=== PATIENT | female | born 1980 | race Caucasian/White ===

== ENCOUNTER 2019-12-11 10:42 | Inpatient (IN) | payer OTHER, SELFPAY ==
[2019-12-11] VITALS (44 sets, daily range): BP systolic 130–169; BP diastolic 73–110; PULSE 91–111; RESP 14–34; TEMP 36.3–36.6; O2SAT 87–97; BMI 64.0
--- NOTE | 2019-12-11 11:10 | XR_ITS ---
WS: [id number] Portable AP upright chest, 12/11/2019 Clinical Data: dyspnea Comparison: None. Findings: The heart is enlarged. There are bilateral pulmonary opacities which could represent acute pneumonia. No nodules, masses or effusions are seen. The pulmonary vascularity may be slightly increa sed. XR/XR chest 1V portable [id number] Impression: 1. Mild cardiomegaly and pulmonary vascular congestion. 2. Pulmonary opacities bilaterally which could represent pneumonia.
[2019-12-11 11:54] LABS: ABG PCO2 50.5 mmHg (35-45); Arterial Blood Gas Hematocrit 40.2 % (37-47); Base Excess ABG 5.4 mmol/L (-2.0-2.0); Blood Gas Allen Test Pos; Blood Gas Operator Identificat CAK; Blood Gas Sample Site Radial, left; Blood Gas Sample Type Arterial; HCO3 ABG 31.4 mmol/L (22-26); Oxygen Device NC; PO2 ABG 55.9 mmHg (80.0-100.0)
--- NOTE | 2019-12-11 11:56 | ED_ITS ---
HPI - SOB/Dyspnea General: Chief Complaint: Shortness of Breath/Dyspnea Stated Complaint: SOB Time Seen by Provider: 12/11/19 10:45 History of Present Illness: HPI Narrative: 39-year-old female presents emergency room with severe shortness of breath myalgias. Is been progressively worsening for the last week and now to the point where she went to the local clinic and was found to be hypoxic she was sent here. She does not have any history of chronic respiratory problems she is not sure of any exposure but was concerned about COVID. She has not had any anosmia she has had some loose stools no vomiting. MD elicited complaint: shortness of breath and cough Onset (ago): week(s) (1) Timing: constant Severity: severe Exacerbating factors: exertion and coughing Relieving factors: oxygen and rest Known history of: other (Hypertension morbid obesity) Associated symptoms: Reports cough; Deny abdominal pain, chest congestion, chest pain, diaphoresis, dizziness, extremity pain, fever(s), hemoptysis, lightheadedness, myalgias, nausea, orthopnea, palpitations, paresthesias, polydipsia, polyuria, rash, sense of impending doom, syncope or vomiting Treatment prior to arrival: none Review of Systems Const: Denies: fever(s) or diaphoresis ENMT: Denies: throat pain, ear or mastoid pain, nasal discharge or nasal congestion Card: Denies: chest pain, palpitations, lightheadedness, syncope or orthopnea Resp: Denies: hemoptysis or chest congestion GI: Denies: abdominal pain, nausea or vomiting : Denies: flank pain, difficulty voiding, dysuria, urinary frequency or urinary urgency Musc: Denies: extremity pain Skin/Breast: Denies: rash or pruritus Neuro: Denies: dizziness Endo: Denies: polyuria or polydipsia [facility] ED PFSH: Medical History (Updated 12/11/19 @ 18:18 by Trevin Canchola MD) Morbid obesity Physical Exam Const: COMMON NORMALS: average body habitus, patient oriented x3 and alert GENERAL APPEARANCE: cooperative, comfortable, well kempt and well developed NUTRITIONAL APPEARANCE: obese ORIENTATION/CONSCIOUSNESS: Yes awake, Yes oriented to person and Yes oriented to place HENMT: COMMON NORMALS: normocephalic, atraumatic and EAC's normal HEAD & SCALP: normocephalic and atraumatic EXTERNAL AUDITORY CANAL: EAC's normal Neck/C-Spine: COMMON NORMALS: no meningeal signs Lymph: LYMPHATIC: no lymphadenopathy noted Resp: COMMON NORMALS: normal respiratory effort, No retractions, No use of accessory muscles and clear to auscultation bilaterally AUSCULTATION: clear to auscultation bilaterally Cardio: COMMON NORMALS: regular rate and regular rhythm RATE: regular rate RHYTHM: regular rhythm HEART SOUNDS: no murmurs GI: COMMON NORMALS: Normal to inspection, nondistended, normoactive bowel sounds present, Soft to palpation and No hepatosplenomegaly present PALPATION: Yes Soft to palpation and Yes No hepatosplenomegaly present : COMMON NORMALS: Yes no CVA tenderness BLADDER/KIDNEY EXAM: Yes no CVA tenderness Back/Pelvis: COMMON NORMALS: no CVA tenderness LUMBAR SPINE/LOWER BACK: Yes normal to inspection Extremity: COMMON NORMALS: no clubbing, cyanosis or edema, no calf tenderness and no pedal edema Neuro: COMMON NORMALS: patient oriented x3 SENSORIUM/ORIENTATION: Yes alert, Yes oriented to person and Yes oriented to place MENINGEAL SIGNS: Yes no meningeal signs Psych: APPEARANCE: Yes well kempt Skin: COMMON NORMALS: no rashes or lesions noted and turgor normal GENERAL SKIN EXAM: no rashes or lesions noted and turgor normal Course Vital Signs: Vital signs: Vital Signs Temperature 98.8 F 12/12/19 12:00 Pulse Rate 99 12/12/19 14:22 Respiratory Rate 20 H 12/12/19 14:22 Blood Pressure 98/77 12/12/19 13:00 Pulse Oximetry 92 12/12/19 14:22 MDM - SOB/Dyspnea MDM Narrative: Medical decision making narrative: Initially had some difficulty with placement. We did not have a VICU bed available here we ultimately had arrangements made at [facility] for the time that have been completed of acute bed became available here so we canceled her transfer to [facility] will keep patient here she received Decadron and her first dose of REM does severe discussed with Dr. Sher. Will also have the patient get a CTA of the chest in route to the VICU Lab Data: Labs: Lab Results 12/11/19 12/11/19 12/11/19 Range/Units 11:43 13:20 13:20 WBC 5.5 (4.0-10.0) 10^3/ uL RBC 4.73 (4.1-5.3) 10^6/u L Hgb 12.6 (11.5-15.3) g/dL Hct 41.9 (37.0-47.0) % MCV 88.6 (81-99) fL MCH 26.6 L (28.0-34.0) pg MCHC 30.1 (30.0-36.0) g/dL RDW 14.5 (12.1-15.1) % Plt Count 177 (130-400) 10^3/c mm MPV 10.7 H (7.4-10.4) fL Neut % (Auto) 82.2 % Lymph % (Auto) 8.9 % [place] % (Auto) 4.9 % Eos % (Auto) 0.0 % Baso % (Auto) 0.4 % Neut # (Auto) 4.50 (1.8-7.7) 10^3/u L Lymph # (Auto) 0.5 L (0.8-4.8) 10^3/u L [place] # (Auto) 0.3 (0.2-0.9) 10^3/u L Eos # (Auto) 0.0 (0.0-0.8) 10^3/u L Baso # (Auto) 0.0 (0.0-0.1) 10^3/u L Nucleated RBC % (a uto) 0.4 % Nucleated RBCs # 0.0 /100WBC Fibrinogen 668 H (174-498) mg/dL D-Dimer 1.26 H (0-0.59) ug/mIFE U Specimen Type Arterial Sample Site Radial, left ABG pH 7.40 (7.35-7.45) ABG pCO2 50.5 H (35-45) mmHg ABG pO2 55.9 L (80.0-100.0) mmH g ABG HCO3 31.4 H (22-26) mmol/L ABG Base Excess 5.4 H (-2.0-2.0) mmol/ L Gopal Test Pos Hematocrit 40.2 (37-47) % O2 Delivery Device Nc O2 Liters/Min 2.0 % FiO2 28.0 % Nutrition Professor ID Cak Sodium (136-145) mmol/L Potassium (3.5-5.1) mmol/L Chloride (98-107) mmol/L Carbon Dioxide (22-29) mmol/L Anion Gap (5-19) BUN (6-20) mg/dL Creatinine (0.5-0.9) mg/dL GFR Calculation (90-130) mL/min Glucose (65-115) mg/dL Estimat Average Gl ucose Hemoglobin A1c (4.0-6.0) % Calculated Osmolal ity (285-295) mOsm/k g Lactic Acid (0.5-2.2) mmol/L Calcium (8.5-10.5) mg/dL Ferritin (15-150) ng/mL Total Bilirubin (0.15-1.2) mg/dL AST (0-32) U/L ALT (0-33) U/L Alkaline Phosphata se (35-105) IU/L Lactate Dehydrogen ase (135-214) U/L Creatine Kinase (26-192) U/L C-Reactive Protein (0.0-4.9) mg/L NT-Pro-B Natriuret Pep (0-125) pg/mL Total Protein (6.6-8.7) g/dL Albumin (3.5-5.2) g/dL Globulin (1.3-4.6) g/dL Procalcitonin (0-0.5) ng/mL TSH (0.27-4.20) uIU/ mL SARS-CoV-2 Ag (Rap id) (Negative) 12/11/19 12/11/19 12/11/19 Range/Units 13:20 13:20 13:20 WBC (4.0-10.0) 10^3/ uL RBC (4.1-5.3) 10^6/u L Hgb (11.5-15.3) g/dL Hct (37.0-47.0) % MCV (81-99) fL MCH (28.0-34.0) pg MCHC (30.0-36.0) g/dL RDW (12.1-15.1) % Plt Count (130-400) 10^3/c mm MPV (7.4-10.4) fL Neut % (Auto) % Lymph % (Auto) % [place] % (Auto) % Eos % (Auto) % Baso % (Auto) % Neut # (Auto) (1.8-7.7) 10^3/u L Lymph # (Auto) (0.8-4.8) 10^3/u L [place] # (Auto) (0.2-0.9) 10^3/u L Eos # (Auto) (0.0-0.8) 10^3/u L Baso # (Auto) (0.0-0.1) 10^3/u L Nucleated RBC % (a uto) % Nucleated RBCs # /100WBC Fibrinogen (174-498) mg/dL D-Dimer (0-0.59) ug/mIFE U Specimen Type Sample Site ABG pH (7.35-7.45) ABG pCO2 (35-45) mmHg ABG pO2 (80.0-100.0) mmH g ABG HCO3 (22-26) mmol/L ABG Base Excess (-2.0-2.0) mmol/ L Gopal Test Hematocrit (37-47) % O2 Delivery Device O2 Liters/Min % FiO2 % Nutrition Professor ID Sodium 135 L (136-145) mmol/L Potassium 4.2 (3.5-5.1) mmol/L Chloride 94 L (98-107) mmol/L Carbon Dioxide 31 H (22-29) mmol/L Anion Gap 14.2 (5-19) BUN 10 (6-20) mg/dL Creatinine 0.5 (0.5-0.9) mg/dL GFR Calculation 136.6 H (90-130) mL/min Glucose 250 H (65-115) mg/dL Estimat Average Gl ucose Hemoglobin A1c (4.0-6.0) % Calculated Osmolal ity 284 L (285-295) mOsm/k g Lactic Acid 1.1 (0.5-2.2) mmol/L Calcium 8.6 (8.5-10.5) mg/dL Ferritin 25 (15-150) ng/mL Total Bilirubin 0.5 (0.15-1.2) mg/dL AST 36 H (0-32) U/L ALT 29 (0-33) U/L Alkaline Phosphata se 90 (35-105) IU/L Lactate Dehydrogen ase 303 H (135-214) U/L Creatine Kinase 14 L (26-192) U/L C-Reactive Protein 44.1 H (0.0-4.9) mg/L NT-Pro-B Natriuret Pep 57 (0-125) pg/mL Total Protein 8.2 (6.6-8.7) g/dL Albumin 4.0 (3.5-5.2) g/dL Globulin 4.2 (1.3-4.6) g/dL Procalcitonin 0.13 (0-0.5) ng/mL TSH (0.27-4.20) uIU/ mL SARS-CoV-2 Ag (Rap id) Positive H (Negative) 12/11/19 12/11/19 Range/Units 13:20 13:23 WBC (4.0-10.0) 10^3/ uL RBC (4.1-5.3) 10^6/u L Hgb (11.5-15.3) g/dL Hct (37.0-47.0) % MCV (81-99) fL MCH (28.0-34.0) pg MCHC (30.0-36.0) g/dL RDW (12.1-15.1) % Plt Count (130-400) 10^3/c mm MPV (7.4-10.4) fL Neut % (Auto) % Lymph % (Auto) % [place] % (Auto) % Eos % (Auto) % Baso % (Auto) % Neut # (Auto) (1.8-7.7) 10^3/u L Lymph # (Auto) (0.8-4.8) 10^3/u L [place] # (Auto) (0.2-0.9) 10^3/u L Eos # (Auto) (0.0-0.8) 10^3/u L Baso # (Auto) (0.0-0.1) 10^3/u L Nucleated RBC % (a uto) % Nucleated RBCs # /100WBC Fibrinogen (174-498) mg/dL D-Dimer (0-0.59) ug/mIFE U Specimen Type Sample Site ABG pH (7.35-7.45) ABG pCO2 (35-45) mmHg ABG pO2 (80.0-100.0) mmH g ABG HCO3 (22-26) mmol/L ABG Base Excess (-2.0-2.0) mmol/ L Gopal Test Hematocrit (37-47) % O2 Delivery Device O2 Liters/Min % FiO2 % Nutrition Professor ID Sodium (136-145) mmol/L Potassium (3.5-5.1) mmol/L Chloride (98-107) mmol/L Carbon Dioxide (22-29) mmol/L Anion Gap (5-19) BUN (6-20) mg/dL Creatinine (0.5-0.9) mg/dL GFR Calculation (90-130) mL/min Glucose (65-115) mg/dL Estimat Average Gl ucose 226 Hemoglobin A1c 9.5 H (4.0-6.0) % Calculated Osmolal ity (285-295) mOsm/k g Lactic Acid (0.5-2.2) mmol/L Calcium (8.5-10.5) mg/dL Ferritin (15-150) ng/mL Total Bilirubin (0.15-1.2) mg/dL AST (0-32) U/L ALT (0-33) U/L Alkaline Phosphata se (35-105) IU/L Lactate Dehydrogen ase (135-214) U/L Creatine Kinase (26-192) U/L C-Reactive Protein (0.0-4.9) mg/L NT-Pro-B Natriuret Pep (0-125) pg/mL Total Protein (6.6-8.7) g/dL Albumin (3.5-5.2) g/dL Globulin (1.3-4.6) g/dL Procalcitonin (0-0.5) ng/mL TSH 1.14 (0.27-4.20) uIU/ mL SARS-CoV-2 Ag (Rap id) (Negative) Discharge Plan Discharge Patient Disposition: Admitted As Inpatient Admit Provider: Trevin Canchola Clinical Impression: COVID-19 virus infection, Morbid obesity Condition: Stable Referrals: Cole Millan MD [Primary Care Provider] - Discharge Date/Time: 12/11/19 20:41 Coding Level of Care Code ED Telecommunications Specialist for Chg Fwd Exam Comprehensive
[2019-12-11 13:31] LABS: Basophils % 0.4 %; Hematocrit 41.9 % (37.0-47.0); Hemoglobin 12.6 g/dL (11.5-15.3); Lymphocytes # 0.5 10^3/uL (0.8-4.8); Lymphocytes % 8.9 %; Mean Corpuscular HGB Conc 30.1 g/dL (30.0-36.0); Mean Corpuscular Hemoglobin 26.6 pg (28.0-34.0); Mean Corpuscular Volume 88.6 fL (81-99); Mean Platelet Volume 10.7 fL (7.4-10.4); Monocytes # 0.3 10^3/uL (0.2-0.9); Monocytes % 4.9 %; Neutrophils % 82.2 %; Nucleated Red Blood Cells % 0.4 %; Platelet Count 177 10^3/cmm (130-400); Red Blood Count 4.73 10^6/uL (4.1-5.3); Red Cell Distribution Width 14.5 % (12.1-15.1); White Blood Count 5.5 10^3/uL (4.0-10.0)
--- NOTE | 2019-12-11 13:33 | PC.NURSE ---
Pt swabbed for COVID
[2019-12-11 13:51] LABS: Fibrinogen 668 mg/dL (174-498)
[2019-12-11 13:55] LABS: Lactic Sepsis W/Reflex 1.1 mmol/L (0.5-2.2)
[2019-12-11 14:01] LABS: SARS Covid-2 Antigen Positive (Negative)
[2019-12-11 14:04] LABS: NT Pro B Type Natriuretic Pept 57 pg/mL (0-125); Procalcitonin 0.13 ng/mL (0-0.5)
[2019-12-11 14:15] LABS: Alanine Aminotransferase 29 U/L (0-33); Alkaline Phosphatase 90 IU/L (35-105); Anion Gap 14.2 (5-19); Aspartate Amino Transferase 36 U/L (0-32); Blood Urea Nitrogen 10 mg/dL (6-20); C Reactive Protein 44.1 mg/L (0.0-4.9); Calcium 8.6 mg/dL (8.5-10.5); Carbon Dioxide 31 mmol/L (22-29); Chloride 94 mmol/L (98-107); Creatine Phosphokinase 14 U/L (26-192); Ferritin 25 ng/mL (15-150); Globulin 4.2 g/dL (1.3-4.6); Glomerular Filtration Rate 136.6 mL/min (90-130); Glucose 250 mg/dL (65-115); Lactate Dehydrogenase 303 U/L (135-214); Osmolality Calculated 284 mOsm/kg (285-295); Potassium 4.2 mmol/L (3.5-5.1); Sodium 135 mmol/L (136-145); Total Bilirubin 0.5 mg/dL (0.15-1.2); Total Protein 8.2 g/dL (6.6-8.7)
[2019-12-11] MEDS: dexamethasone 10 mg/mL INJ IVP (14:54)
[2019-12-11 14:56] LABS: D Dimer 1.26 ug/mIFEU (0-0.59)
--- NOTE | 2019-12-11 18:08 | CTR_ITS ---
PROCEDURE INFORMATION: Exam: CT Angiography Chest With Contrast Exam date and time: 12/11/2019 8:12 PM Age: 39 years old Clinical indication: Shortness of breath; Patient HX: Covid +; Additional info: Elevated d-dimer - do enroute to vicu TECHNIQUE: Imaging protocol: Computed tomographic angiography of the chest with intravenous contrast. 3D rendering (Not supervised by radiologist): MIP and/or 3D reconstructed images were created by the technologist. Radiation optimization: All CT scans at this facility use at least one of these dose optimization techniques: automated exposure control; mA and/or kV adjustment per patient size (includes targeted exams where dose is matched to clinical indication); or iterative reconstruction. Contrast material: OMNI 350; Contrast volume: 92 ml; Contrast route: INTRAVENOUS (IV); COMPARISON: CR XR chest 1V portable [id number] 12/11/2019 11:30 AM RADIATION DOSE METRICS: Total DLP (mGy-cm): 2866.61 FINDINGS: Pulmonary arteries: There is no pulmonary embolus. Aorta: Unremarkable. No aortic aneurysm. No aortic dissection. Great vessels off aortic arch: There is an abherrent origin of the right subclavian artery. Lungs: Diffuse multifocal airspace and ground-glass opacities are noted in the lungs bilaterally. Mild interstitial and ground-glass opacity is also noted concerning for mild edema. Pleural space: Unremarkable. No pneumothorax. No pleural effusion. Heart: Unremarkable. No cardiomegaly. No pericardial effusion. Mediastinal space: A small hiatal hernia is present. Lymph nodes: Unremarkable. No enlarged lymph nodes. Liver: There is a diffuse decrease in hepatic parenchymal density, consistent with fatty infiltration. Gallbladder and bile ducts: The gallbladder demonstrates layering density consistent with noncalcified stones or sludge. There is no common bile duct dilation. Spleen: The spleen is homogeneous but prominent in size measuring 18.5 cm in length. Bones/joints: Unremarkable. No acute fracture. Soft tissues: Unremarkable. CT/CT angio chest PE protcl [id number] IMPRESSION: 1. There is no pulmonary embolus. 2. Diffuse multifocal airspace and ground-glass opacities are noted in the lungs bilaterally. No adenopathy or pleural effusion.Commonly reported imaging features of COVID-19 pneumonia are present. Other processes such as influenza pneumonia and organizing pneumonia, as can be seen with drug toxicity and connective tissue disease, can cause a similar imaging pattern. 3. There is splenomegaly. Fatty infiltration liver is noted. REFERENCES: Donaldo Matthew, et al., Radiological Society of [place] Expert Consensus Statement on Reporting Chest CT Findings Related to COVID-19. Endorsed by the Society of Thoracic Radiology, the [employer], and RSNA. Published June 25, 2019. Radiation Dose CTDIVOL = (mGy): DLP = 2866.61 (mGy-cm)
--- NOTE | 2019-12-11 18:10 | P.HP_ITS ---
Providers/Chief Complaint Primary Care Provider: Cole Millan MD Chief Complaint: SOB History of Present Illness Yvonne Sebastian is a 39 year old female with a past medical history of morbid obesity, no other significant past medical history, who presents to [facility] due to a one-week history of cough, shortness of breath, fatigue, malaise. Patient tells me that she lives in [place], with her , mother, she works at [employer], last time she worked was roughly a week ago. No recent travel, no known sick contacts, no known exposure COVID-19. Roughly a week ago she started to develop fatigue, malaise, weakness with diarrhea. Symptoms persisted and she started to develop cough, productive, with minimal hemoptysis, shortness of breath with exertion, no fevers, chills, no nausea, vomiting, no joint aches or pains, no myalgias, no dysgeusia, no paresthesias. Patient states that primarily her shortness of breath symptoms worsen, she presented to [facility] where she was found to be hypoxic, requiring up to 4 L oxygen, she then tested positive for COVID-19 and was instructed to come to the emergency room. Denies a cardiac history, no history of chest pain, no history of stress testing, no history of cardiac cath, no history of heart failure, no history of COPD, no history of asthma, she tells me that she quit smoking many years ago, and smoke only a few cigarettes for a little bit here and there, no history of using e-cigarettes, denies a history of asthma, or reactive airways disease as a child. Is exposed to secondhand smoking at home. Review of Systems Const: Reports: fatigue and malaise; Denies: fever(s) or chills Eyes: Denies: change in vision or blurry vision ENMT: Denies: nasal congestion Card: Denies: chest pain, palpitations or irregular heart rhythm Resp: Reports: dyspnea; Denies: productive cough, non-productive cough or wheezing GI: Reports: diarrhea; Denies: abdominal pain, nausea, vomiting, hematemesis, constipation, hematochezia or melena : Denies: flank pain, dysuria or urinary frequency Musc: Denies: neck pain or back pain Skin/Breast: Denies: rash Neuro: Denies: headache(s), dizziness or vertigo Psych: Denies: anxiety or depression Endo: Denies: polyuria or polydipsia Medications/Allergies Home Medications Medication Instructions Recorded Confirmed Last Taken Type No Known Home Medications 12/11/19 12/11/19 Unknown History Allergies Allergy/AdvReac Type Severity Reaction Status Date / Time No Known Allergies Allergy Unverified 12/11/19 11:42 PFSH Acute PFSH: Medical History (Updated 12/11/19 @ 18:18 by Trevin Canchola MD) Morbid obesity Vitals/I&O/Wt Last Vital Signs Temp 97.3 F L 12/11/19 10:46 Pulse 101 H 12/11/19 16:55 Resp 20 H 12/11/19 16:55 BP 137/95 12/11/19 16:55 Pulse Ox 94 12/11/19 16:55 Weight last 48 hrs Weight 158.757 kg Physical Exam Const: COMMON NORMALS: no acute distress and patient oriented x3 GENERAL APPEARANCE: cooperative and comfortable HENMT: COMMON NORMALS: normocephalic HEAD & SCALP: normocephalic Eye: COMMON NORMALS: Equal, round and reactive pupils present and EOMs intact bilaterally PUPIL: Yes Equal, round and reactive pupils present DIRECT OPHTHALMOSCOPY: Yes no papilledema Neck/C-Spine: COMMON NORMALS: full ROM, no lymphadenopathy, no JVD and Thyroid normal THYROID: Thyroid normal Lymph: LYMPHATIC: no lymphadenopathy noted Resp: COMMON NORMALS: normal respiratory effort, No retractions, No use of accessory muscles and clear to auscultation bilaterally AUSCULTATION: diminished lung sounds Cardio: COMMON NORMALS: no JVD, regular rate, regular rhythm, S1 normal heart sound present, S2 normal heart sound present, No gallops present (Cardio), No clicks present (Cardio) and No murmurs present (Cardio) RATE: regular rate RHYTHM: regular rhythm HEART SOUNDS: S1 normal heart sound present and S2 normal heart sound present GI: COMMON NORMALS: Normal to inspection, nondistended, normoactive bowel s ounds present, Soft to palpation, non-tender and No hepatosplenomegaly present PALPATION: Yes Soft to palpation and Yes No hepatosplenomegaly present OTHER: Morbidly obese Extremity: COMMON NORMALS: normal to inspection, full ROM and no pedal edema Neuro: COMMON NORMALS: patient oriented x3, CN's II-XII intact bilaterally, moves all extremities and no focal motor deficits Psych: COMMON NORMALS: mental status grossly normal, Normal thought process present and cooperative THOUGHT PROCESS: Normal thought process present Data : 12/11/19 13:20 12/11/19 13:20 A&P Assessment and plan (1) Acute respiratory failure with hypoxia: -Secondary to COVID-19 -Risk factors include morbid obesity, and exposure to secondhand smoking -White blood cell count 5.5, d-dimer 1.26, fibrinogen 668, CRP 44, LDH 303, AST 36, ALT 29, creatinine 0.5, random blood sugar 250 -ABG shows pH 7.4, PCO2 50.5, bicarb 31.4 -Chest x-ray shows pleural vascular congestion, pulmonary opacities bilaterally pneumonia versus viral pneumonia, viral versus viral pneumonitis Plan: -Admit to viral ICU -CT angiogram ordered to evaluate for pulmonary embolism -Decadron 6 mg IV push daily -Levaquin 750 mg daily -Started patient on remdesvir -Advair, Spiriva, albuterol -Oxygen therapy -Telemetry monitoring -Sputum cultures blood cultures -Monitor QT interval daily, monitor potassium, magnesium -We will get a BNP, cardiac echocardiogram -Lovenox for DVT prophylaxis 40 mg for now -Protonix for GI prophylaxis -Patient is a full code, okay with elective intubation if required Status: Acute (2) COVID-19 virus infection: Status: Acute (3) Morbid obesity: Status: Acute (4) Hyperglycemia: -We will check a hemoglobin A1c -We will start on low-dose sliding scale Status: Acute (5) Viral pneumonitis: Status: Acute Attestations Medical Necessity Statement*: Patient cards hospitalization, inpatient, greater than 2 midnights, for acute respiratory failure secondary to COVID-19 Coding Level of Care Code Acute Hospital Insurance Clerk for [facility] Fwd Diagnoses Acute respiratory failure with hypoxia J96.01 COVID-19 virus infection U07.1 Morbid obesity E66.01 Hyperglycemia R73.9 Viral pneumonitis J12.9
[2019-12-11 19:32] LABS: Estmated Average Glucose 226; Hemoglobin A1C 9.5 % (4.0-6.0)
[2019-12-11 20:57] LABS: Thyroid Stimulating Hormone 1.14 uIU/mL (0.27-4.20)
[2019-12-11] MEDS: iohexol 350 mg/mL 100 mL Btl IV (20:59)
[2019-12-11] MEDS: enoxaparin 40 mg/0.4 mL Syringe SUBCUT (22:06)
[2019-12-12] VITALS (25 sets, daily range): BP systolic 98–153; BP diastolic 51–100; PULSE 71–105; RESP 16–38; TEMP 36.7–37.1; O2SAT 89–100
[2019-12-12 05:13] LABS: Basophils % 0.2 %; Hematocrit 38.9 % (37.0-47.0); Hemoglobin 11.7 g/dL (11.5-15.3); Lymphocytes # 0.6 10^3/uL (0.8-4.8); Lymphocytes % 10.5 %; Mean Corpuscular HGB Conc 30.1 g/dL (30.0-36.0); Mean Corpuscular Hemoglobin 26.4 pg (28.0-34.0); Mean Corpuscular Volume 87.6 fL (81-99); Mean Platelet Volume 10.9 fL (7.4-10.4); Monocytes # 0.4 10^3/uL (0.2-0.9); Monocytes % 6.3 %; Neutrophils # 4.75 10^3/uL (1.8-7.7); Neutrophils % 80.6 %; Nucleated Red Blood Cells % 0 %; Platelet Count 193 10^3/cmm (130-400); Red Blood Count 4.44 10^6/uL (4.1-5.3); Red Cell Distribution Width 14.4 % (12.1-15.1); White Blood Count 5.9 10^3/uL (4.0-10.0)
[2019-12-12 05:33] LABS: C Reactive Protein 40.9 mg/L (0.0-4.9); Magnesium 1.9 mg/dL (1.7-2.3); Phosphorus 2.7 mg/dL (2.5-4.5)
[2019-12-12 05:34] LABS: Alanine Aminotransferase 24 U/L (0-33); Albumin Level 3.6 g/dL (3.5-5.2); Alkaline Phosphatase 88 IU/L (35-105); Anion Gap 13.9 (5-19); Aspartate Amino Transferase 32 U/L (0-32); Blood Urea Nitrogen 12 mg/dL (6-20); Calcium 8.9 mg/dL (8.5-10.5); Carbon Dioxide 30 mmol/L (22-29); Chloride 96 mmol/L (98-107); Globulin 3.7 g/dL (1.3-4.6); Glomerular Filtration Rate 110.7 mL/min (90-130); Glucose 232 mg/dL (65-115); Lactic Sepsis W/Reflex 1.1 mmol/L (0.5-2.2); Osmolality Calculated 286 mOsm/kg (285-295); Potassium 3.9 mmol/L (3.5-5.1); Sodium 136 mmol/L (136-145); Total Bilirubin 0.4 mg/dL (0.15-1.2); Total Protein 7.3 g/dL (6.6-8.7)
[2019-12-12 05:44] LABS: Procalcitonin 0.12 ng/mL (0-0.5)
[2019-12-12 05:50] LABS: Cortisol Random 2.02 ug/mL (2.47-19.5)
[2019-12-12 05:55] LABS: Chol HDL Ratio 6.83 mg/dL (0.0-4.40); Cholesterol 157 mg/dL (0-200); HDL Cholesterol 23 mg/dL (60-100); LDL Cholesterol Calculated 103 mg/dL (50-129); LDL HDL Ratio 4.48 RATIO (0.00-3.22); Triglycerides 154 mg/dL (0-150)
[2019-12-12 08:01] LABS: Glucose Point of Care 207 mg/dL (70-110)
[2019-12-12] MEDS: potassium chloride ER 10 mEq Tablet 40 MEQ PO (08:27)
[2019-12-12] MEDS: FUROsemide 10 mg/mL SDV 4mL 40 MG IVP (08:28)
[2019-12-12] MEDS: doxycycline 100 mg Tablet PO ×2 (08:30→17:27)
--- NOTE | 2019-12-12 10:00 | ECG_ITS ---
[facility] ED Test Date: 2019-12-12 Pat Name: Yvonne Sebastian Department: Room: ICU19 Gender: Female Director Of Testing: TERENCE : 1980 Requested By: Trevin Canchola Order Number: [id number] Santos MD: Daisha Padilla M.D. Measurements Intervals [place] Rate: 99 P: 31 MS: 175 QRS: 7 QRSD: 94 T: 8 QT: 355 QTc: 457 Interpretive Statements SINUS RHYTHM No previous ECG available for comparison Electronically Signed On 12-16-2019 15:00:58 CDT by Daisha Padilla M.D. [email or web address]
[2019-12-12 11:29] LABS: Glucose Point of Care 256 mg/dL (70-110)
[2019-12-12] MEDS: dexamethasone 10 mg/mL INJ 6 MG IVP (14:15)
--- NOTE | 2019-12-12 14:49 | PM.PN ---
Subjective Subjective: Interval history: Patient complains of some shortness of breath with exertion, no fevers, chills, no nausea, vomiting is on 4 L nasal cannula, hemoglobin A1c was 9.5, is a Newly diagnosed type II diabetic Vitals/I&O/Wt Last Vital Signs Temp 98.8 F 12/12/19 12:00 Pulse 99 12/12/19 14:22 Resp 20 H 12/12/19 14:22 BP 98/77 12/12/19 13:00 Pulse Ox 92 12/12/19 14:22 12/11/19 12/12/19 12/12/19 22:59 06:59 14:59 Intake Total 580 / 580 Output Total 410 / 410 600 / 600 Balance -410 / -410 - Weight last 48 hrs Weight 158.757 kg Physical Exam Const: COMMON NORMALS: no acute distress and patient oriented x3 HENMT: COMMON NORMALS: normocephalic HEAD & SCALP: normocephalic Neck/C-Spine: COMMON NORMALS: no JVD Resp: COMMON NORMALS: normal respiratory effort, No retractions, No use of accessory muscles and clear to auscultation bilaterally AUSCULTATION: clear to auscultation bilaterally Cardio: COMMON NORMALS: no JVD, regular rate, regular rhythm, S1 normal heart sound present and S2 normal heart sound present RATE: regular rate RHYTHM: regular rhythm HEART SOUNDS: S1 normal heart sound present and S2 normal heart sound present GI: COMMON NORMALS: Normal to inspection, nondistended, normoactive bowel sounds present, Soft to palpation, non-tender, No hepatosplenomegaly present, no masses and no bruits PALPATION: Yes Soft to palpation and Yes No hepatosplenomegaly present OTHER: Morbidly obese Extremity: COMMON NORMALS: capillary refill normal, no clubbing, cyanosis or edema, no calf tenderness and no pedal edema Neuro: COMMON NORMALS: patient oriented x3 Psych: COMMON NORMALS: mental status grossly normal Data : 12/12/19 04:45 12/12/19 04:45 Micro: Microbiology 12/12/19 02:15 Stool Lactoferrin - Final Stool Enteric Pathogens (PCR) - Final Parasite Antigen Panel - Final C.difficile Toxin B Gene (PCR) - Final Occult Blood (FIT) - Final 12/11/19 13:20 Blood Culture - Preliminary Blood SPECIMEN COLLECTED 12/11/19 13:20 Blood Culture - Preliminary Blood SPECIMEN COLLECTED A&P Assessment and plan (1) Acute respiratory failure with hypoxia: -Secondary to COVID-19 -Risk factors include morbid obesity, and exposure to secondhand smoking -White blood cell count 5.9, d-dimer 1.26, fibrinogen 668, CRP 44, LDH 303, AST 36, ALT 29, creatinine 0.5, random blood sugar 250 -ABG shows pH 7.4, PCO2 50.5, bicarb 31.4 -Chest x-ray shows pleural vascular congestion, pulmonary opacities bilaterally pneumonia versus viral pneumonia, viral versus viral pneumonitis -CT angiogram of the chest shows diffuse multifocal airspace and groundglass opacities are noted in the lungs bilaterally Plan: -Admit to viral ICU -Decadron 6 mg IV push daily -Start on doxycycline for atypical pneumonia -Started patient on remdesvir -Advair, Spiriva, albuterol -Oxygen therapy -Telemetry monitoring -Sputum cultures blood cultures -QTc interval 457 ms -Monitor QT interval daily, monitor potassium, magnesium -Echocardiogram shows an ejection fraction of 60%, no regional wall motion abnormalities -Lovenox for DVT prophylaxis 40 mg -Protonix for GI prophylaxis -Patient is a full code, okay with elective intubation if required Status: Acute (2) COVID-19 virus infection: Status: Acute (3) Morbid obesity: Status: Acute (4) Hyperglycemia: -We will check a hemoglobin A1c -We will start on low-dose sliding scale Status: Acute (5) Viral pneumonitis: Status: Acute (6) Type 2 diabetes mellitus: -Newly diagnosed type 2 diabetes mellitus, hemoglobin A1c 9.5 -Diabetic education -insulin therapy -Levemir 5 units twice daily -Metformin on discharge Status: Acute Attestations Medical Necessity Statement*: Patient requires hospitalization for acute respiratory failure with hypoxia secondary to COVID-19 Coding Level of Care Code Acute Aviation Medicine Specialist for [facility] F[facility]romeo Diagnoses Acute respiratory failure with hypoxia J96.01 COVID-19 virus infection U07.1 Morbid obesity E66.01 Hyperglycemia R73.9 Viral pneumonitis J12.9 Type 2 diabetes mellitus E11.9
[2019-12-12 15:58] LABS: Glucose Point of Care 234 mg/dL (70-110)
[2019-12-12 20:17] LABS: Glucose Point of Care 194 mg/dL (70-110)
[2019-12-12] MEDS: enoxaparin 40 mg/0.4 mL Syringe SUBCUT (21:17)
--- NOTE | 2019-12-12 21:20 | USCV_ITS ---
CamdenYvonne read Age: 39 Gender: F : 1980 Exam Date: 12/12/2019 06:09 Ordering Phys: Trevin Canchola MD Technologist: Jamshid Bobo Exam Location: [facility] [place] Indication: SOB BP: 119 / 62 HR: 91 Rhythm: Sinus Technical Quality: Very technically difficult study MEASUREMENTS (Male / Female) Normal Values 2D ECHO LV Diastolic Diameter PLAX 4.0 cm 4.2 - 5.9 / 3.9 - 5.3 cm LV Systolic Diameter PLAX 2.6 cm IVS Diastolic Thickness 1.1 cm 0.6 - 1.0 / 0.6 - 0.9 cm IVS Systolic Thickness 1.6 cm LVPW Diastolic Thickness 1.5 cm 0.6 - 1.0 / 0.6 - 0.9 cm LVPW Systolic Thickness 1.4 cm LVOT Diameter 2.0 cm LV Ejection Fraction 2D Teich 66.2 % LV Ejection Fraction MOD 2C 46.9 % LV Ejection Fraction 2C AL 46.5 % LA Diameter 4.3 cm LA Width 3.8 cm LA Height 4.2 cm RA Width 3.4 cm RA Height 4.2 cm M-MODE LV Diastolic Diameter MM 4.3 cm 4.2 - 5.9 / 3.9 - 5.3 cm LV Systolic Diameter MM 2.9 cm LV Ejection Fraction MM Teich 60.1 % IVS Diastolic Thickness MM 1.7 cm 0.6 - 1.0 / 0.6 - 0.9 cm IVS Systolic Thickness MM 2.2 cm LVPW Diastolic Thickness MM 1.6 cm 0.6 - 1.0 / 0.6 - 0.9 cm LVPW Systolic Thickness MM 1.7 cm RV Diastolic Diameter MM 2.4 cm Aortic Annulus Diameter 3.0 cm LA Ao Ratio MM 1.5 MV E Point Septal Separation 1.9 cm DOPPLER AV Peak Velocity 136.0 cm/s LVOT Peak Velocity 98.0 cm/s AV Area Cont Eq vti 2.5 cm squared AV Area Cont Eq pk 2.3 cm squared MV Area PHT 5.0 cm squared Mitral E to A Ratio 2.9 MV E' Velocity 78.0 cm/s TR Peak Velocity 160.0 cm/s TR Peak Gradient 10.2 mmHg TV Peak E Velocity 93.0 cm/s Right Atrial Pressure 3.0 mmHg Pulmonary Artery Systolic Pressu 13.2 mmHg PV Peak Velocity 160.0 cm/s FINDINGS Left Ventricle Normal left ventricular cavity size. Normal left ventricular systolic function. No regional wall motion abnormalities. Left ventricular ejection fraction is estimated at 60 %. Right Ventricle The right ventricle is normal in size and function. Right Atrium The right atrium is normal in size. Left Atrium The left atrium is normal in size. Mitral Valve Structurally normal mitral valve without significant stenosis or prolapse. There is no mitral regurgitation. Aortic Valve Structurally normal aortic valve without significant sclerosis or stenosis. There is no aortic regurgitation. Tricuspid Valve Structurally normal tricuspid valve without significant stenosis or regurgitation. Pulmonary artery systolic pressure is normal. Pulmonic Valve Structurally normal pulmonic valve without significant stenosis. There is no pulmonic regurgitation. Pericardium Normal pericardium without effusion. Aorta Normal ascending aorta dimension. CONCLUSIONS 1-Normal left ventricular cavity size. Normal left ventricular systolic function. No regional wall motion abnormalities. Left ventricular ejection fraction is estimated at 60 %. 2-There is no pericardial effusion. 3-No significant valve abnormalities. 4-Pulmonary artery systolic pressure is within normal limits. 5-There are no prior echocardiogram studies to compare. Mercy Crump MD (Electronically Signed) Final Date: 12 December 2019 14:51 S
[2019-12-13] VITALS (25 sets, daily range): BP systolic 124–166; BP diastolic 74–106; PULSE 70–103; RESP 19–23; TEMP 36.4–36.7; O2SAT 89–94
[2019-12-13 05:10] LABS: Lactic Sepsis W/Reflex 0.9 mmol/L (0.5-2.2)
[2019-12-13 05:27] LABS: C Reactive Protein 28.4 mg/L (0.0-4.9); Magnesium 1.8 mg/dL (1.7-2.3); Phosphorus 3.7 mg/dL (2.5-4.5)
[2019-12-13 05:31] LABS: Alanine Aminotransferase 26 U/L (0-33); Albumin Level 3.6 g/dL (3.5-5.2); Alkaline Phosphatase 74 IU/L (35-105); Aspartate Amino Transferase 36 U/L (0-32); Blood Urea Nitrogen 18 mg/dL (6-20); Calcium 8.2 mg/dL (8.5-10.5); Carbon Dioxide 30 mmol/L (22-29); Chloride 98 mmol/L (98-107); Globulin 3.5 g/dL (1.3-4.6); Glomerular Filtration Rate 136.6 mL/min (90-130); Glucose 161 mg/dL (65-115); Osmolality Calculated 286 mOsm/kg (285-295); Sodium 138 mmol/L (136-145); Total Bilirubin 0.4 mg/dL (0.15-1.2); Total Protein 7.1 g/dL (6.6-8.7)
[2019-12-13 05:35] LABS: Anion Gap 13.9 (5-19); Potassium 3.9 mmol/L (3.5-5.1)
[2019-12-13 05:42] LABS: Procalcitonin 0.08 ng/mL (0-0.5)
--- NOTE | 2019-12-13 06:21 | PC.NURSE ---
SHIFT SUMMARY Patient rested well all night. Vital signs were stable. No complaints of pain or shortness of breath. Patient had three episodes of significant apnea that caused a desat to 70s-80s and then quickly rebounded to 90s. Patient may benefit from a sleep study.
[2019-12-13 06:31] LABS: Basophils % 0.5 %; Eosinophils % 0.5 %; Hematocrit 40.5 % (37.0-47.0); Hemoglobin 11.7 g/dL (11.5-15.3); Lymphocytes # 0.8 10^3/uL (0.8-4.8); Lymphocytes % 18.5 %; Mean Corpuscular HGB Conc 28.9 g/dL (30.0-36.0); Mean Corpuscular Hemoglobin 25.7 pg (28.0-34.0); Mean Platelet Volume 11.3 fL (7.4-10.4); Monocytes # 0.4 10^3/uL (0.2-0.9); Monocytes % 8.4 %; Neutrophils # 2.97 10^3/uL (1.8-7.7); Neutrophils % 69.3 %; Nucleated Red Blood Cells % 0 %; Platelet Count 183 10^3/cmm (130-400); Red Blood Count 4.55 10^6/uL (4.1-5.3); Red Cell Distribution Width 14.6 % (12.1-15.1); White Blood Count 4.3 10^3/uL (4.0-10.0)
[2019-12-13 08:34] LABS: Glucose Point of Care 168 mg/dL (70-110)
[2019-12-13] MEDS: doxycycline 100 mg Tablet PO ×2 (09:59→17:13)
--- NOTE | 2019-12-13 10:00 | ECG_ITS ---
[facility] ED Test Date: 2019-12-13 Pat Name: Yvonne Sebastian Department: Room: ICU19 Gender: Female [employer]er [employer] Offbearer: : 1980 Requested By: Trevin Canchola Order Number: [id number] Danielle MD: Daisha Padilla M.D. Measurements Intervals [place] Rate: 88 P: 37 SD: 174 QRS: 5 QRSD: 90 T: 31 QT: 364 QTc: 441 Interpretive Statements SINUS RHYTHM POSSIBLE ANTERIOR MYOCARDIAL INFARCTION [30 ms Q WAVE IN V3/V4, OR R < 0.2 mV IN V4], OF INDETERMINATE AGE Compared to ECG 12/12/2019 10:52:59 Myocardial infarct finding now present Electronically Signed On 12-16-2019 15:00:43 CDT by Daisha Padilla M.D. [email or web address] [email or web address] regional medical centerNight Outwvumedicine [facility].[employer]/store/OV/[id number]
[2019-12-13] MEDS: FUROsemide 10 mg/mL SDV 4mL 40 MG IVP (12:11)
[2019-12-13 12:25] LABS: Glucose Point of Care 238 mg/dL (70-110)
[2019-12-13] MEDS: dexamethasone 10 mg/mL INJ 6 MG IVP (12:41)
--- NOTE | 2019-12-13 14:29 | PM.PN ---
Subjective Subjective: Interval history: This morning patient was examined, she is laying in bed, she tells me that she still requiring 4 L nasal cannula, when she gets up and exerts himself she does okay, but does feel fatigued, no nausea, no vomiting, no chest pain, no lightheadedness, no dizziness, no joint pains, no poor appetite, she is quite hesitant about taking insulin at home, she wants to talk to her primary care physician about it Vitals/I&O/Wt Last Vital Signs Temp 97.6 F 12/13/19 13:58 Pulse 103 H 12/13/19 12:00 Resp 23 H 12/13/19 08:00 BP 139/84 12/13/19 12:00 Pulse Ox 90 12/13/19 12:00 12/12/19 12/13/19 12/13/19 22:59 06:59 14:59 Intake Total 300 / 880 780 / 780 Output Total 600 / 1200 350 / 1550 625 / 625 Balance -300 / -320 -350 / -670 155 / 155 Physical Exam Const: COMMON NORMALS: no acute distress and patient oriented x3 HENMT: COMMON NORMALS: normocephalic HEAD & SCALP: normocephalic Neck/C-Spine: COMMON NORMALS: no JVD Resp: COMMON NORMALS: normal respiratory effort, No retractions and No use of accessory muscles AUSCULTATION: wheezes Cardio: COMMON NORMALS: no JVD, regular rate, regular rhythm, S1 normal heart sound present and S2 normal heart sound present RATE: regular rate RHYTHM: regular rhythm HEART SOUNDS: S1 normal heart sound present and S2 normal heart sound present GI: COMMON NORMALS: Normal to inspection, nondistended, normoactive bowel sounds present, Soft to palpation, non-tender, No hepatosplenomegaly present, no masses and no bruits PALPATION: Yes Soft to palpation and Yes No hepatosplenomegaly present Extremity: COMMON NORMALS: capillary refill normal, no clubbing, cyanosis or edema, no calf tenderness and no pedal edema Neuro: COMMON NORMALS: patient oriented x3 Psych: COMMON NORMALS: mental status grossly normal Data : 12/13/19 06:00 12/13/19 04:28 Micro: Microbiology 12/13/19 13:02 Blood Culture - Preliminary Blood SPECIMEN COLLECTED 12/13/19 13:00 Blood Culture - Preliminary Blood SPECIMEN COLLECTED 12/11/19 13:20 Blood Culture - Preliminary Blood NEGATIVE TO DATE 12/11/19 13:20 Blood Culture - Preliminary Blood Gram positive cocci 12/12/19 02:15 Stool Lactoferrin - Final Stool Enteric Pathogens (PCR) - Final Parasite Antigen Panel - Final C.difficile Toxin B Gene (PCR) - Final Occult Blood (FIT) - Final A&P Assessment and plan (1) Acute respiratory failure with hypoxia: -Secondary to COVID-19 -Risk factors include morbid obesity, and exposure to secondhand smoking -ABG shows pH 7.4, PCO2 50.5, bicarb 31.4 -Chest x-ray shows pleural vascular congestion, pulmonary opacities bilaterally pneumonia versus viral pneumonia, viral versus viral pneumonitis -CT angiogram of the chest shows diffuse multifocal airspace and groundglass opacities are noted in the lungs bilaterally -Still having some expiratory wheezing on exam, still on 4 L, will require another day of treatment Plan: -Admit to viral ICU -Decadron 6 mg IV push daily -Tinea doxycycline for atypical pneumonia -Started patient on remdesvir -Advair, Spiriva, albuterol -Oxygen therapy -Telemetry monitoring -Sputum cultures blood cultures -QTc interval 441 ms -Monitor QT interval daily, monitor potassium, magnesium -Echocardiogram shows an ejection fraction of 60%, no regional wall motion abnormalities -Lovenox for DVT prophylaxis 40 mg -Protonix for GI prophylaxis -Patient is a full code, okay with elective intubation if required Status: Acute (2) COVID-19 virus infection: Status: Acute (3) Morbid obesity: Status: Acute (4) Hyperglycemia: -We will check a hemoglobin A1c -We will start on low-dose sliding scale Status: Acute (5) Viral pneumonitis: Status: Acute (6) Type 2 diabetes mellitus: -Newly diagnosed type 2 diabetes mellitus, hemoglobin A1c 9.5 -Diabetic education -insulin therapy -Levemir 5 units twice daily -Metformin on discharge Status: Acute Attestations Medical Necessity Statement*: Patient requires hospitalization of due to acute respiratory failure with hypoxia secondary to COVID-19 Coding Level of Care Code Acute Ic Design Engineer for [facility] Fw Diagnoses Acute respiratory failure with hypoxia J96.01 COVID-19 virus infection U07.1 Morbid obesity E66.01 Hyperglycemia R73.9 Viral pneumonitis J12.9 Type 2 diabetes mellitus E11.9
[2019-12-13 16:31] LABS: Glucose Point of Care 205 mg/dL (70-110)
[2019-12-13 20:08] LABS: Glucose Point of Care 182 mg/dL (70-110)
[2019-12-13] MEDS: enoxaparin 40 mg/0.4 mL Syringe SUBCUT (21:15)
[2019-12-14] VITALS (19 sets, daily range): BP systolic 127–155; BP diastolic 82–104; PULSE 77–115; RESP 18–22; TEMP 36.9; O2SAT 85–95
[2019-12-14 05:00] LABS: Basophils % 0.2 %; Eosinophils # 0.1 10^3/uL (0.0-0.8); Hemoglobin 11.9 g/dL (11.5-15.3); Lymphocytes # 0.9 10^3/uL (0.8-4.8); Lymphocytes % 19.1 %; Mean Corpuscular Hemoglobin 25.8 pg (28.0-34.0); Mean Corpuscular Volume 88.7 fL (81-99); Mean Platelet Volume 11.1 fL (7.4-10.4); Monocytes # 0.4 10^3/uL (0.2-0.9); Monocytes % 7.3 %; Neutrophils # 3.35 10^3/uL (1.8-7.7); Neutrophils % 70.3 %; Nucleated Red Blood Cells % 0 %; Platelet Count 184 10^3/cmm (130-400); Red Blood Count 4.62 10^6/uL (4.1-5.3); Red Cell Distribution Width 14.5 % (12.1-15.1); White Blood Count 4.8 10^3/uL (4.0-10.0)
[2019-12-14 05:18] LABS: C Reactive Protein 22.6 mg/L (0.0-4.9); Magnesium 1.7 mg/dL (1.7-2.3); Phosphorus 3.6 mg/dL (2.5-4.5)
[2019-12-14 05:19] LABS: Alanine Aminotransferase 26 U/L (0-33); Albumin Level 3.5 g/dL (3.5-5.2); Alkaline Phosphatase 76 IU/L (35-105); Anion Gap 11.9 (5-19); Aspartate Amino Transferase 33 U/L (0-32); Blood Urea Nitrogen 18 mg/dL (6-20); Calcium 8.4 mg/dL (8.5-10.5); Carbon Dioxide 32 mmol/L (22-29); Chloride 96 mmol/L (98-107); Globulin 3.7 g/dL (1.3-4.6); Glomerular Filtration Rate 136.6 mL/min (90-130); Glucose 145 mg/dL (65-115); Osmolality Calculated 281 mOsm/kg (285-295); Potassium 3.9 mmol/L (3.5-5.1); Sodium 136 mmol/L (136-145); Total Bilirubin 0.3 mg/dL (0.15-1.2); Total Protein 7.2 g/dL (6.6-8.7)
[2019-12-14 05:31] LABS: Procalcitonin 0.09 ng/mL (0-0.5)
--- NOTE | 2019-12-14 07:16 | PC.NURSE ---
Patient had uneventful night. No voiced concerns or needs. VS WNL afebrile and oriented X 4. Patient able to get up to bathroom independently. No skin issues Will continue to monitor and assist as needed following CPOC
[2019-12-14] MEDS: doxycycline 100 mg Tablet PO (07:36)
[2019-12-14 08:15] LABS: Glucose Point of Care 141 mg/dL (70-110)
[2019-12-14] MEDS: potassium chloride ER 10 mEq Tablet 40 MEQ PO (09:53)
[2019-12-14] MEDS: FUROsemide 10 mg/mL SDV 4mL 40 MG IVP (09:53)
--- NOTE | 2019-12-14 10:00 | ECG_ITS ---
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 Measurements Intervals [place] Rate: 101 P: 35 UT: 174 QRS: 2 QRSD: 88 T: 29 QT: 343 QTc: 445 Interpretive Statements SINUS TACHYCARDIA PROBABLE INFERIOR MYOCARDIAL INFARCTION [35 ms Q WAVE IN II/aVF], PROBABLY OLD Compared to ECG 12/13/2019 05:16:02 Sinus rhythm no longer present Myocardial infarct finding still present Electronically Signed On 12-16-2019 14:59:06 CDT by Daisha Padilla M.D. [id number]
[2019-12-14 12:15] LABS: Glucose Point of Care 240 mg/dL (70-110)
[2019-12-14] MEDS: dexamethasone 10 mg/mL INJ 6 MG IVP (13:11)
--- NOTE | 2019-12-14 16:24 | PC.NURSE ---
discharge instructions and prescriptions given to patient. Patient gives verbal and written understanding. Home oxygen on and working. IV removed. Belongings with patient. Pt in wheelchair, to private vehicle by house super and security.
--- NOTE | 2019-12-19 10:39 | PC.SOCIAL ---
Received Culture results from Micro and spoke with patient. Explained to the possibility of having bacteria in blood but also could be a contaminant. Patient asked questions related to what this means. Explained that 4 bottles were drawn and the first set had 2 out of 4 with potential of gram negative staph/ Explained repeat showed 1 of 4 with the same. Micro indicates this could be a contaminate. (Not a good specimen). Patient has been afebrile and no N/V. She is starting to get stronger and was discharged with diagnosis of COVID 19. We discussed that she is still on O2 at 4L but she would like to wean down. She does not have a pulse ox at home but has ordered one. This nurse explained that if she is over 92% generally she can start lowing the O2 a little at at time to see how she does. This nurse explained she would need to speak with her primary care provider Lucila Weinberg to discuss the O2 parameters she would like her to maintain and review the blood culture results. Patient indicates she was told could schedule virtual visit. Lucila Weinberg office was called and spoke with ASHWIN to discuss the culture results and that Dr Canchola is out [place] country therefore her Primary care will need to review and follow up with patient. Verbalized patient is also aware she needs to make appt to see if further orders are needed. Request whose attention the results should be sent to and was told Attention Kim. Dela Cruz will have provider review. Faxed results with confirmation they were sent successfully. Will send out plasma information to patient and basic guidelines precautionsn post return home from [facility]. Patient nor provider office had any further questions.
--- NOTE | 2020-01-06 19:09 | PM.DCS ---
Discharge Providers Date of Admission: 12/11/19 17:08 Date of Discharge: January 06, 2020 Attending Provider at Admission: Trevin Canchola MD Attending Provider at Discharge: Trevin Canchola MD Primary Care Provider: Cole Millan MD Diagnoses at Discharge Discharge Diagnosis (1) Acute respiratory failure with hypoxia: Status: Resolved (2) COVID-19 virus infection: Status: Acute (3) Morbid obesity: Status: Acute (4) Hyperglycemia: Status: Resolved (5) Viral pneumonitis: Status: Acute (6) Type 2 diabetes mellitus: Status: Acute Reason for Visit Reason for Visit: SOB Hospital Course Discharge Summary: This is a 39-year-old female with no significant past medical history except morbid obesity who presents to [facility] due to acute respiratory failure with hypoxia secondary to COVID-19, patient was admitted to the viral ICU, CT angiogram of the chest showed a diffuse multifocal airspace and groundglass opacities are noted in the lungs bilaterally, she required 4 L nasal cannula, received Decadron, doxycycline for atypical pneumonia, Advair, Spiriva, albuterol, started on remdesvir. Patient was clinically monitored, in the viral ICU, she clinically improved, monitoring for fevers, lung status improved, breathing improved, ambulating without significant symptomatology. Patient was discharged on albuterol, Advair, instructions for handwashing, self-isolation for 14 days, and if her symptoms were to worsen to come back to the emergency room. She was discharged on 4 L nasal cannula, with instructions to titrate down oxygen as outpatient. During admission patient was diagnosed with new onset type 2 diabetes mellitus, hemoglobin A1c was 9.5, she received diabetic education education, discharged on a NovoLog sliding scale, with Levemir 5 units twice daily, metformin 500 mg twice daily, with close follow-up with her primary care provider with blood sugar logs in 2 to 3 weeks. Patient was advised if her blood sugar was greater than 500 call primary care, blood sugar less than 60 drink or juice and call primary care. Physical Exam Const: COMMON NORMALS: no acute distress and patient oriented x3 HENMT: COMMON NORMALS: normocephalic HEAD & SCALP: normocephalic Neck/C-Spine: COMMON NORMALS: no JVD Resp: COMMON NORMALS: normal respiratory effort, No retractions, No use of accessory muscles and clear to auscultation bilaterally AUSCULTATION: clear to auscultation bilaterally Cardio: COMMON NORMALS: no JVD, regular rate, regular rhythm, S1 normal heart sound present and S2 normal heart sound present RATE: regular rate RHYTHM: regular rhythm HEART SOUNDS: S1 normal heart sound present and S2 normal heart sound present GI: COMMON NORMALS: Normal to inspection, nondistended, normoactive bowel sounds present, Soft to palpation, non-tender, No hepatosplenomegaly present, no masses and no bruits PALPATION: Yes Soft to palpation and Yes No hepatosplenomegaly present Extremity: COMMON NORMALS: capillary refill normal, no clubbing, cyanosis or edema, no calf tenderness and no pedal edema Neuro: COMMON NORMALS: patient oriented x3 Psych: COMMON NORMALS: mental status grossly normal Discharge Data Data Completed and Pending: Completed Studies During Hospitalization Category Date Time Status CT angio chest PE protcl [id number] Urge nt Cat Scan 12/11/19 18:08 Completed XR chest 1V juan manuel ble [id number] Stat Exams 12/11/19 11:10 Completed CV echo complete* [id number] Routine Ultrasound 12/12/19 21:20 Completed Vitals: Last Vital Signs Temp 98.4 F 12/14/19 14:14 Pulse 103 H 12/14/19 15:00 Resp 20 H 12/14/19 14:14 BP 143/91 12/14/19 16:00 Pulse Ox 94 12/14/19 16:00 Discharge Plan Discharge Patient Disposition: Home Condition: Stable Prescriptions: New Ventolin HFA 90 mcg/actuation Hfa Aerosol Inhaler 2 puff inhalation Q4H.RESPIRATORY PRN (Reason: Shortness Of Breath) Qty: 18 RF: 0 Advair Diskus 250-50 mcg/dose Blister With Device 1 ea inhalation DAILY Qty: 60 RF: 0 Levemir FlexTouch U-100 Insuln 100 unit/mL (3 mL) insulin pen 5 unit SUBCUT Q12H Qty: 15 RF: 0 Novolog Flexpen U-100 Insulin 100 unit/mL (3 mL) insulin pen See Rx Instructions .ROUTE .COMPLEX Qty: 15 RF: 0 (DME) glucometer kit See Rx Instructions .Route .MEDSUPPLY Qty: 1 RF: 0 metformin 500 mg tablet 500 mg PO BID 30 Days Qty: 60 RF: 0 No Action No Known Home Medications RF: 0 Discharge Orders: Discharge Order (Routine); Ordered 12/14/19 Ordered By: Trevin Canchola Other Ambulatory Orders: DME: Oxygen (Order) Location: None Selected Ordered By: Jaquelin Ramirez DME: Oxygen (Order) Location: None Selected Ordered By: Trevin Canchola Referrals: [facility] [Outside] Lucila Weinberg FNP [Referring] - Discharge Diet: Diabetic Discharge Activity: Resume usual activity Patient Instructions: Type 2 Diabetes, Viral Pneumonia (DC), Contact Precautions (DC) Activity Restrictions/Additional Instructions: -Please check blood sugars 3 times daily with meals, record them in a blood sugar log, bring blood sugar log to primary care physician's office -Inject Levemir 5 units every 12 hours -Inject NovoLog based on sliding scale provided, only inject this insulin if you eat, inject 3 times daily with meals based on sliding scale -If your blood sugar is greater than 500 please call primary care or come to the emergency room -If your blood sugar is less than 60 or you feel lightheaded or dizzy, drink orange juice or eat a hard candy, and called 911 -Importantly low blood sugar kills, make sure you only inject insulin if you eat a meal, and if your blood sugar is less than 60 or he lightheaded or dizzy please take it seriously -Take oxygen as prescribed Please isolate for 21 days from discharge. Discharge Date/Time: 12/14/19 16:28 Discharge Attestations Time Spent in Discharge Care*: less than 30 min Quality Metrics Clinical Quality Measures During this hospital stay, did patient experience: None Coding Level of Care Code Acute Tax Consultant for [facility] Diagnoses Acute respiratory failure with hypoxia J96.01 COVID-19 virus infection U07.1 Morbid obesity E66.01 Hyperglycemia R73.9 Viral pneumonitis J12.9 Type 2 diabetes mellitus E11.9
== END 2019-12-14 16:28 | disposition home or self-care (01) | DRG 177 ==
LOC: ER 17:03 → ICU 19:07
PROVIDERS: Family Medicine; Admitting Provider Family Medicine; PCP Family Medicine; Visit Provider Family Medicine
DX: U07.1 COVID-19 (principal); J12.89 Other viral pneumonia; J96.01 Acute respiratory failure with hypoxia; Z68.44 Body mass index [BMI] 60.0-69.9, adult; E66.01 Morbid (severe) obesity due to excess calories; Z77.22 Contact with and (suspected) exposure to environmental tobacco smoke (acute) (chronic); E11.65 Type 2 diabetes mellitus with hyperglycemia; Z79.4 Long term (current) use of insulin
CPT/HCPCS: 12345; 36415; 36416; 36600; 71045; 71275; 80053; 80061; 82274; 82533; 82550; 82728; 82803; 82962; 83036; 83605; 83615; 83630; 83735; 83880; 84100; 84145; 84443; 85025; 85378; 85384; 86140; 87040; 87205; 87426; 87493; 87506; 93005; 93306; 96372; 96375; 99284; J1100; J1650; J1815; J1940; Q9967